=== PATIENT | male | born 1985 | race Caucasian/White ===

== ENCOUNTER 2017-11-23 08:54 | Emergency (ER) | payer OTHER ==
[~2017-11-23] VITALS: Ht 182.9 cm; Wt 74.8 kg
[~2017-11-23 08:54] MED LIST: CELEXA10 MG; FLEXERIL PO; HYDROXYZINE HCL10 M1; LORTAB 5 MG/5001 TA1 PO; NOHOMEMEDICATIONS; NORCO 5-325 TA1 EACH PO; PERCOCET 5-3251 EACH PO; ZOFRAN 4 MG ORAL4 MG DIS
[2017-11-23 09:25] LABS: HEMATOCRIT 45.1 % (42.0-52.0); HEMOGLOBIN 15.7 gm/dL (14.0-18.0); MCHC 34.9 g/dL (28.0-37.0); MPV 8.4 fl. (7.2-11.1); NUCLEATED RBCS 0 /100WBC; PLATELET COUNT* 159 thou/uL (150-400); RBC 5.07 mil/uL (4.50-6.00); RDW-CV 12.6 % (10.5-14.5); WBC 7.2 thou/uL (4.0-11.0)
[2017-11-23 09:30] LABS: CALCIUM 8.7 mg/dL (8.5-10.1); CREATININE 1.2 mg/dL (0.6-1.3); POTASSIUM 3.8 mmol/L (3.5-5.1)
[2017-11-23 09:35] LABS: ALBUMIN 3.9 g/dL (3.4-5.0); TOTAL BILIRUBIN 0.4 mg/dL (<0.1-1.0); TOTAL PROTEIN 7.7 g/dL (6.4-8.2)
[2017-11-23 09:39] LABS: INFLUENZA A ANTIGEN None Detected (None Detect); INFLUENZA B ANTIGEN None Detected (None Detect)
[2017-11-23 10:11] LABS: ABSOLUTE LYMPHOCYTES 0.6 thou/uL (0.8-5.3); ABSOLUTE MONOCYTES 0.9 thou/uL (0.0-1.2); ABSOLUTE NEUTROPHILS 5.6 thou/uL (1.6-8.1); ANISOCYTOSIS 1+; PLATELET ESTIMATE ADEQUATE; POIKILOCYTOSIS 1+
[2017-11-23] MEDS ORDERED: ZOFRAN4 MG PO (10:18)
[2017-11-23 10:28] VITALS: BP 100/57
== END 2017-11-23 10:30 | disposition home or self-care (01) ==
LOC: M.ERS 08:54
PROVIDERS: Emergency Medicine
DX: A08.4 Viral intestinal infection, unspecified (principal); F41.9 Anxiety disorder, unspecified; F17.210 Nicotine dependence, cigarettes, uncomplicated; F10.99 Alcohol use, unspecified with unspecified alcohol-induced disorder

== ENCOUNTER 2021-05-18 08:58 | Emergency (ER) | payer OTHER ==
[~2021-05-18] VITALS: Ht 182.9 cm; Wt 54.4 kg
[~2021-05-18 08:58] MED LIST changes: +ZOFRAN4 MG PO
[2021-05-18] MEDS ORDERED: ZOFRAN ODT4 MG PO (10:11)
[2021-05-18 10:35] VITALS: BP 148/98
== END 2021-05-18 10:35 | disposition home or self-care (01) ==
LOC: M.ERS 08:58
DX: U07.1 COVID-19 (principal); F17.210 Nicotine dependence, cigarettes, uncomplicated